=== PATIENT | male | born 1995 | race Caucasian/White ===

== ENCOUNTER 2018-06-23 19:09 | Emergency (ER) | payer OTHER ==
[~2018-06-23] VITALS: Ht 167.6 cm; Wt 54.4 kg
[~2018-06-23 19:09] MED LIST: PHENERGAN 25 MG25 M1 PO
[2018-06-23] MEDS ORDERED: NAPROSYN500 MG PO (20:50)
[2018-06-23] MEDS ORDERED: NORFLEX100 MG PO (20:50)
[2018-06-23 20:58] VITALS: BP 103/73
== END 2018-06-23 20:59 | disposition home or self-care (01) ==
LOC: ER 19:09
DX: S00.83XA Contusion of other part of head, initial encounter (principal); S20.212A Contusion of left front wall of thorax, initial encounter; V43.52XA Car driver injured in collision with other type car in traffic accident, initial encounter; Y93.89 Activity, other specified; Y92.89 Other specified places as the place of occurrence of the external cause; Y99.8 Other external cause status